=== PATIENT | female | born 1960 | race Caucasian/White ===

== ENCOUNTER → 2016-06-07 | Outpatient (CLI) | payer BC ==
[~2016-06-07] MED LIST: B COMPLEX1 EACH PO; BUPROPION HYDR150 M5 PO; CENTRUM WOMEN1 EACH PO; ESTRACE1 M1 PO; FIBER500 MG PO; L-LYSINE500 M2 PO; MEDROXYPROGEST2.5 MG PO; NICODERM C21 MG/24 H TD; VITAMIN C500 M4 PO
--- NOTE | ~2016-06-07 | ST ---
[place], [place] EXERCISE STRESS TEST REPORT NAME: LUCRECIA MORALES UNIT #: [id number] ROOM: DOCTOR: STUART ELIAS [facility],ANUM BIRTHDATE: [birth year] DOS: 06/07/2016 The patient underwent stress on stage 3 Mich protocol up to 10 minutes and up to 93% predicted 154 per minute. Isotope was injected. No ischemic changes on EKG. No complications noted. Myocardial perfusion scan to follow. ANUM DAVIDSON MD CM:STRESS:EXERCISE STRESS TEST REPORT [id number] ANTHONY DAVIDSON MD [facility]
== END | disposition home or self-care (01) ==
LOC: CARD 02:09
DX: R07.9 Chest pain, unspecified (principal); R06.02 Shortness of breath; R94.31 Abnormal electrocardiogram [ECG] [EKG]; Z72.0 Tobacco use

== ENCOUNTER 2017-11-21 11:13 | Emergency (ER) | payer BC ==
[~2017-11-21] VITALS: Ht 170.1 cm; Wt 61.7 kg
== END 2017-11-21 13:25 | disposition left against medical advice (07) ==
LOC: ED 11:13
DX: R05 Cough (principal); R09.89 Other specified symptoms and signs involving the circulatory and respiratory systems; Z53.21 Procedure and treatment not carried out due to patient leaving prior to being seen by health care provider; F17.200 Nicotine dependence, unspecified, uncomplicated; Z79.899 Other long term (current) drug therapy

== ENCOUNTER 2019-02-17 21:50 | Emergency (ER) | payer BC ==
[~2019-02-17] VITALS: Ht 170.1 cm; Wt 61.7 kg
[2019-02-17 22:21] LABS: BASO # 0.1 10*3/uL (0.0-0.1); BASO % 0.4 % (0.0-1.0); EOS # 0.2 10*3/uL (0.0-0.4); EOS % 1.6 % (1.0-4.0); HEMATOCRIT 42.4 % (37.0-47.0); HEMOGLOBIN 14.3 g/dl (12.0-16.0); LYMPH # 2.3 10*3/uL (1.3-4.4); LYMPH % 20.7 % (27.0-41.0); MEAN CELL VOLUME 98.4 fl (81.0-99.0); MEAN CORPUSCULAR HGB 33.2 pg (27.0-31.0); MEAN CORPUSCULAR HGB CONC 33.7 g/dl (33.0-37.0); MEAN PLATELET VOLUME 8.9 fl (9.6-12.3); MONO # 1.2 10*3/uL (0.1-1.0); MONO % 10.6 % (3.0-9.0); NEUT # 7.4 10*3/uL (2.3-7.9); NEUT % 66.3 % (47.0-73.0); PLATELET COUNT AUTOMATED 241 10*3/uL (130-400); RED BLOOD COUNT 4.31 10*6/uL (4.10-5.10); RED CELL DISTRI WIDTH 12.4 % (0-14.5); WHITE BLOOD COUNT 11.2 10*3/uL (4.8-10.8)
[2019-02-17 22:48] LABS: ALBUMIN 3.7 gm/dl (3.1-4.5); ALKALINE PHOSPHATASE 112 U/L (45-117); BUN 7 mg/dl (7-24); CHLORIDE 106 mmol/L (98-107); CREATININE 0.69 mg/dL (0.55-1.02); LIPASE 144 U/L (73-393); POTASSIUM 3.4 mmol/L (3.5-5.1); SGOT/AST 20 IU/L (3-35); SGPT/ALT 30 U/L (12-78); SODIUM 139 mmol/L (136-145); TOTAL PROTEIN 7.5 gm/dL (6.4-8.2)
[2019-02-17 23:01] LABS: BILIRUBIN NEGATIVE (NEGATIVE); BLOOD NEGATIVE (NEGATIVE); CLARITY CLEAR (CLEAR); COLOR YELLOW (YELLOW); GLUCOSE NEGATIVE (NEGATIVE); KETONE NEGATIVE (NEGATIVE); LEUKO ESTERASE NEGATIVE (NEGATIVE); NITRITE NEGATIVE (NEGATIVE); PH 8.5 (5.0-9.0); UROBILINOGEN 0.2 E.U./dl (0.2-1.0)
[2019-02-17 23:13] LABS: BACTERIA TRACE; RBC 0-2 rbc/hpf (0-2)
[2019-02-18] MEDS ORDERED: ZOFRAN4 MG PO (00:04)
== END 2019-02-18 00:28 | disposition home or self-care (01) ==
LOC: ED 21:50
PROVIDERS: Physician Assistant
DX: B34.9 Viral infection, unspecified (principal); R11.2 Nausea with vomiting, unspecified; R42 Dizziness and giddiness; R51 Headache; R05 Cough; R09.89 Other specified symptoms and signs involving the circulatory and respiratory systems; Z79.899 Other long term (current) drug therapy; Z87.891 Personal history of nicotine dependence